=== PATIENT | female | born 1960 | race Caucasian/White ===

== ENCOUNTER → 2016-12-26 | Outpatient (CLI) | payer MEDICARE, OTHER ==
[~2016-12-26] MED LIST: ACETAMINOPHEN W1 TA6 PO; ALEVE220 MG PO; AMOXICILLIN875 MG PO; ASPIRIN 32325 MG/TA1 PO; ASPIRIN 32325 MG/TAB PO; ATIVAN 0.50.5 MG/TAB PO; ATROVENT INHALE14 GM IH; CALCIUM CARBONATE PO; CARDIZEM CD 18180 MG PO; CARTIA XT240 MG PO; CLONAZEPAM0.5 MG PO; CLONAZEPAM1 MG PO; CLONIDINE0.1 MG PO; CORBAN MAGNESI400 MG PO; DICLOFENAC SOD75 MG PO; DILT-XR240 MG PO; DILTIAZEM ER240 MG PO; FAMOTIDINE 1010 MG PO; FAMOTIDINE20 MG PO; FLECAINIDE PO; FLECAINIDE150 MG PO; FLONASE0.05 MG/AC NAS; FLUTICASON0.05 MG/Ac NS; FOLIC ACID0.8 MG PO; GOOD NEIGHBOR P81 MG PO; GOOD NEIGHBOR325 MG PO; GOOD SENSE ASPI81 M1 PO; KLONOPIN 1MG1 M1 PO; KLONOPIN 1MG1 MG; LISINOPRIL10 MG PO; LISINOPRIL5 MG PO; LORTAB 5/500 501 TAB PO; MAG-OX 400400 MG/TAB PO; MAGNESIUM OXID400 MG PO; MELOXICAM15 MG PO; MUCINEX 60600 MG/TA1 PO; MULTAQ400 M1 PO; MULTI-VITAMINS1 TA1 PO; MULTIVITAMIN FO1 CAP PO; MYLICON PO; NEIGHBOR PO; NORCO 325 MG-51 TA1 PO; NORCO 325 MG-51 TAB PO; NORCO 325 MG-7.1 TAB PO; ONDANSETRON8 M1 PO; ONDANSETRON8 M2 PO; PAXIL10 MG PO; PEPCID 20MG TAB20 MG PO; POTASSIUM CH2 MEQ/ML PO; PRADAXA150 MG PO; PRILOSEC 20MG20 MG PO; PRINIVIL5 MG PO; SERTRALINE50 MG PO; TAMBOCOR150 MG PO; ULTRAM 50MG TAB50 MG PO; VALIUM10 MG PO; VOLTAREN 75 DR75 MG PO; ZESTRIL 10MG10 MG PO; ZESTRIL 5MG5 MG PO; ZOLOFT 100MG100 MG PO
== END ==
LOC: RAD 15:25
DX: S09.90XA Unspecified injury of head, initial encounter (principal); X58.XXXA Exposure to other specified factors, initial encounter; Y93.9 Activity, unspecified

== ENCOUNTER 2017-01-05 20:21 | Emergency (ER) | payer MEDICARE, OTHER ==
[~2017-01-05 20:21] MED LIST changes: -DILT-XR240 MG PO; -FAMOTIDINE 1010 MG PO; -KLONOPIN 1MG1 MG; -LISINOPRIL10 MG PO; -MAGNESIUM OXID400 MG PO; -MELOXICAM15 MG PO
[2017-01-06 09:57] VITALS: BP 168/90
== END 2017-01-06 10:04 | disposition home or self-care (01) ==
LOC: ED 20:21
DX: R07.9 Chest pain, unspecified (principal); M94.0 Chondrocostal junction syndrome [Tietze]; F10.229 Alcohol dependence with intoxication, unspecified; R51 Headache; F17.210 Nicotine dependence, cigarettes, uncomplicated; Y90.9 Presence of alcohol in blood, level not specified
CPT/HCPCS: J1885; J3411; J3475; J7030

== ENCOUNTER 2017-03-28 14:49 | Emergency (ER) | payer MEDICARE, OTHER ==
[~2017-03-28] VITALS: Ht 167.6 cm; Wt 75.0 kg
[2017-03-28] MEDS ORDERED: LISINOPRIL10 MG PO (15:04)
[2017-03-28] MEDS ORDERED: KLONOPIN 1MG1 MG (15:04)
[2017-03-28] MEDS ORDERED: MAGNESIUM OXID400 MG PO (15:04)
[2017-03-28] MEDS ORDERED: FAMOTIDINE 1010 MG PO (15:05)
[2017-03-28] MEDS ORDERED: DILT-XR240 MG PO (15:05)
[2017-03-28] MEDS ORDERED: MELOXICAM15 MG PO (15:06)
[2017-03-28 19:34] VITALS: BP 134/77
== END 2017-03-28 19:34 | disposition home or self-care (01) ==
LOC: ED 14:49
DX: R07.9 Chest pain, unspecified (principal); M94.0 Chondrocostal junction syndrome [Tietze]; F17.210 Nicotine dependence, cigarettes, uncomplicated; F10.20 Alcohol dependence, uncomplicated; Y90.8 Blood alcohol level of 240 mg/100 ml or more

== ENCOUNTER 2017-10-08 09:20 | Emergency (ER) | payer MEDICARE, MEDICAID ==
[~2017-10-08] VITALS: Ht 170.2 cm; Wt 81.8 kg
[~2017-10-08 09:20] MED LIST changes: +DILT-XR240 MG PO; +FAMOTIDINE 1010 MG PO; +KLONOPIN 1MG1 MG; +LISINOPRIL10 MG PO; +MAGNESIUM OXID400 MG PO; +MELOXICAM15 MG PO
[2017-10-08] MEDS ORDERED: ESCITALOPRAM20 MG PO (10:04)
[2017-10-08] MEDS ORDERED: ASPIR LOW81 MG PO (10:05)
[2017-10-08] MEDS ORDERED: DESYREL 100MG100 MG PO (10:06)
[2017-10-08 10:11] LABS: EOS # 0.1 (0.04-0.40); EOS % 0.8 % (1.0-5.0); HEMOGLOBIN 14.8 g/dL (12.5-16.0); LYMPH# 1.6 (1.50-4.00); MEAN CELL VOLUME 89 fl (78-100); MEAN CORPUSCULAR HEMOGLOBIN 30 pg (27-31); MEAN CORPUSCULAR HGB CONC 34 g/dL (33-37); MEAN PLATELET VOLUME 9.8 fl (7.4-10.4); MONO # 0.6 (0.20-0.80); NEU # 3.7 (1.40-6.50); PLATELET COUNT 220 K/mm3 (130-400); RED BLOOD COUNT 4.95 M/mm3 (4.10-5.30); RED CELL DISTRIBUTION WIDTH 15.9 % (11.5-14.5)
[2017-10-08 10:29] LABS: CKMB ISOENZYME 2.6 ng/mL (0.6-3.5)
[2017-10-08 10:30] LABS: ALBUMIN 4.1 g/dL (3.5-5.0); BUN/CREATININE RATIO 26.9 (6.0-26.0); CALCIUM 8.8 mg/dL (8.4-10.2); TOTAL BILIRUBIN 0.9 mg/dL (0.2-1.3); TOTAL PROTEIN 6.5 g/dL (6.3-8.2)
[2017-10-08 10:34] LABS: TROPONIN-I < 0.03 ng/mL (0.00-0.06)
[2017-10-08] MEDS ORDERED: ALBUTEROL2.5 MG/3 M IH (11:51)
[2017-10-08 12:07] VITALS: BP 116/82
== END 2017-10-08 12:06 | disposition home or self-care (01) ==
LOC: ED 09:20
PROVIDERS: Physician Assistant
DX: J06.9 Acute upper respiratory infection, unspecified (principal); M94.0 Chondrocostal junction syndrome [Tietze]; F10.10 Alcohol abuse, uncomplicated; Y90.8 Blood alcohol level of 240 mg/100 ml or more; I48.91 Unspecified atrial fibrillation; F41.9 Anxiety disorder, unspecified; K21.9 Gastro-esophageal reflux disease without esophagitis; Z79.82 Long term (current) use of aspirin; Z88.1 Allergy status to other antibiotic agents; Z88.8 Allergy status to other drugs, medicaments and biological substances

== ENCOUNTER → 2018-02-19 | Outpatient (CLI) | payer MEDICARE, MEDICAID ==
[~2018-02-19] MED LIST changes: +ALBUTEROL2.5 MG/3 M IH; +ASPIR LOW81 MG PO; +DESYREL 100MG100 MG PO; +ESCITALOPRAM20 MG PO
[2018-02-19 20:36] LABS: URINE APPEARANCE CLEAR; URINE BILIRUBIN NEGATIVE (NEGATIVE); URINE BLOOD NEGATIVE (NEGATIVE); URINE COLOR YELLOW; URINE GLUCOSE NEGATIVE (NEGATIVE); URINE KETONE NEGATIVE (NEGATIVE); URINE LEUKOCYTE ESTERASE NEGATIVE (NEGATIVE); URINE NITRATE NEGATIVE (NEGATIVE); URINE PROTEIN(semi-quant) NEGATIVE (NEGATIVE); URINE UROBILINOGEN NORMAL (NORMAL)
[2018-02-19 20:37] LABS: URINE WBC 0-1 /hpf (0-3)
== END ==
LOC: RAD 14:33
PROVIDERS: Family Medicine
DX: M17.12 Unilateral primary osteoarthritis, left knee (principal); I48.0 Paroxysmal atrial fibrillation; E83.42 Hypomagnesemia; I10 Essential (primary) hypertension; F41.9 Anxiety disorder, unspecified; K21.9 Gastro-esophageal reflux disease without esophagitis; F33.1 Major depressive disorder, recurrent, moderate; R39.15 Urgency of urination; R05 Cough

== ENCOUNTER → 2018-02-20 | Outpatient (CLI) | payer MEDICARE, MEDICAID ==
[2018-02-20 10:29] LABS: BUN/CREATININE RATIO 17.5 (6.0-26.0); CALCIUM 9.1 mg/dL (8.4-10.2); POTASSIUM 4.1 mmol/L (3.6-5.0); TOTAL BILIRUBIN 0.3 mg/dL (0.2-1.3); TOTAL PROTEIN 7.1 g/dL (6.3-8.2)
[2018-02-20 10:35] LABS: HEMATOCRIT 41.4 % (37.0-47.0); HEMOGLOBIN 14.4 g/dL (12.5-16.0); MEAN CELL VOLUME 94 fl (78-100); MEAN CORPUSCULAR HEMOGLOBIN 33 pg (27-31); MEAN CORPUSCULAR HGB CONC 35 g/dL (33-37); MEAN PLATELET VOLUME 11.1 fl (7.4-10.4); PLATELET COUNT 191 K/mm3 (130-400); PROTHROMBIN TIME 9.5 SECONDS (9.0-12.0); RED BLOOD COUNT 4.42 M/mm3 (4.10-5.30); RED CELL DISTRIBUTION WIDTH 15.7 % (11.5-14.5); WHITE BLOOD COUNT 5.2 K/mm3 (4.8-10.8)
[2018-02-20 12:29] LABS: PH-URINE 6.5 (5.0 - 8.0); URINE APPEARANCE CLEAR; URINE BILIRUBIN NEGATIVE (NEGATIVE); URINE BLOOD NEGATIVE (NEGATIVE); URINE COLOR YELLOW; URINE GLUCOSE NEGATIVE (NEGATIVE); URINE KETONE 1+ (NEGATIVE); URINE LEUKOCYTE ESTERASE TRACE (NEGATIVE); URINE NITRATE NEGATIVE (NEGATIVE); URINE PROTEIN(semi-quant) TRACE mg/dL (NEGATIVE); URINE UROBILINOGEN NORMAL (NORMAL)
[2018-02-20 12:30] LABS: URINE MUCUS PRESENT (NOT PRESENT)
== END ==
LOC: LAB 09:43
PROVIDERS: Family Medicine
DX: I10 Essential (primary) hypertension (principal); I48.0 Paroxysmal atrial fibrillation; M17.12 Unilateral primary osteoarthritis, left knee; E83.42 Hypomagnesemia; F41.9 Anxiety disorder, unspecified; K21.9 Gastro-esophageal reflux disease without esophagitis; R39.15 Urgency of urination; F32.9 Major depressive disorder, single episode, unspecified

== ENCOUNTER → 2018-02-24 | Outpatient (CLI) | payer MEDICARE, MEDICAID | LOC: PT 13:18 | DX: M17.12 Unilateral primary osteoarthritis, left knee (principal) ==

== ENCOUNTER → 2018-03-17 | Outpatient (CLI) | payer MEDICARE, MEDICAID | LOC: LAB 15:07 | DX: R25.1 Tremor, unspecified (principal); Z72.89 Other problems related to lifestyle; F41.1 Generalized anxiety disorder; M17.12 Unilateral primary osteoarthritis, left knee; Z88.1 Allergy status to other antibiotic agents ==

== ENCOUNTER → 2018-04-16 | Outpatient (CLI) | payer MEDICARE, MEDICAID ==
[~2018-04-16] VITALS: Ht 170.2 cm; Wt 81.8 kg
[2018-04-16 18:06] VITALS: BP 157/99
[2018-04-16 18:43] LABS: URINE APPEARANCE CLEAR; URINE COLOR YELLOW
[2018-04-16 18:44] LABS: PH-URINE 6.5 (5.0 - 8.0); URINE BILIRUBIN NEGATIVE (NEGATIVE); URINE BLOOD NEGATIVE (NEGATIVE); URINE GLUCOSE NEGATIVE (NEGATIVE); URINE KETONE NEGATIVE (NEGATIVE); URINE LEUKOCYTE ESTERASE NEGATIVE (NEGATIVE); URINE NITRATE NEGATIVE (NEGATIVE); URINE PROTEIN(semi-quant) NEGATIVE (NEGATIVE); URINE UROBILINOGEN NORMAL (NORMAL)
== END ==
LOC: AMSURD 17:10 → LAB 17:10
PROVIDERS: Family Medicine
DX: R39.15 Urgency of urination (principal); E83.42 Hypomagnesemia

== ENCOUNTER → 2018-05-07 | Outpatient (CLI) | payer MEDICARE ==
[2018-04-16 18:06] VITALS: BP 157/99
== END ==
LOC: MAMMO 15:15
DX: Z12.31 Encounter for screening mammogram for malignant neoplasm of breast (principal)

== ENCOUNTER → 2018-06-05 | Outpatient (CLI) | payer MEDICARE ==
[2018-04-16 18:06] VITALS: BP 157/99
[2018-06-05 16:12] LABS: ALCOHOL IN-HOUSE < 10 mg/dL
== END ==
LOC: LAB 15:03
PROVIDERS: Family Medicine
DX: F41.1 Generalized anxiety disorder (principal); M17.12 Unilateral primary osteoarthritis, left knee; Z72.89 Other problems related to lifestyle; E83.42 Hypomagnesemia; R39.15 Urgency of urination

== ENCOUNTER → 2018-06-27 | Outpatient (CLI) | payer MEDICARE ==
[2018-04-16 18:06] VITALS: BP 157/99
[2018-06-27 09:26] LABS: HEMATOCRIT 45.5 % (37.0-47.0); HEMOGLOBIN 15.8 g/dL (12.5-16.0); MEAN CELL VOLUME 92 fl (78-100); MEAN CORPUSCULAR HEMOGLOBIN 32 pg (27-31); MEAN CORPUSCULAR HGB CONC 35 g/dL (33-37); MEAN PLATELET VOLUME 10.1 fl (7.4-10.4); PLATELET COUNT 340 K/mm3 (130-400); RED BLOOD COUNT 4.94 M/mm3 (4.10-5.30); RED CELL DISTRIBUTION WIDTH 14.3 % (11.5-14.5); WHITE BLOOD COUNT 7.5 K/mm3 (4.8-10.8)
[2018-06-27 09:39] LABS: ALBUMIN 4.1 g/dL (3.5-5.0); ALT/SGPT 40 U/L (9-52); AST-SGOT 24 U/L (14-36); BUN/CREATININE RATIO 20.2 (6.0-26.0); CALCIUM 9.2 mg/dL (8.4-10.2); CARBON DIOXIDE 28 mmol/L (22-30); GLUCOSE 95 mg/dL (65-105); POTASSIUM 4.3 mmol/L (3.6-5.0); SODIUM 139 mmol/L (137-145); TOTAL BILIRUBIN 0.6 mg/dL (0.2-1.3); TOTAL PROTEIN 6.8 g/dL (6.3-8.2)
[2018-06-27 09:46] LABS: ALCOHOL IN-HOUSE < 10 mg/dL
[2018-06-27 10:00] LABS: LYMPHOCYTE 41 % (20-51); MONOCYTE 9 % (3-10); NEUTROPHILS 43 % (42-75); PROTHROMBIN TIME 9.3 SECONDS (9.0-12.0)
[2018-06-27 10:22] LABS: URINE COLOR YELLOW
[2018-06-27 10:23] LABS: URINE APPEARANCE HAZY
[2018-06-27 10:24] LABS: URINE BILIRUBIN NEGATIVE (NEGATIVE); URINE BLOOD NEGATIVE (NEGATIVE); URINE GLUCOSE NEGATIVE (NEGATIVE); URINE KETONE NEGATIVE (NEGATIVE); URINE LEUKOCYTE ESTERASE NEGATIVE (NEGATIVE); URINE NITRATE NEGATIVE (NEGATIVE); URINE PROTEIN(semi-quant) TRACE mg/dL (NEGATIVE); URINE UROBILINOGEN NORMAL (NORMAL); URINE WBC 0-1 /hpf (0-3)
== END ==
LOC: LAB 09:08
PROVIDERS: Family Medicine
DX: Z01.812 Encounter for preprocedural laboratory examination (principal); M17.12 Unilateral primary osteoarthritis, left knee; K21.9 Gastro-esophageal reflux disease without esophagitis; I48.0 Paroxysmal atrial fibrillation; I10 Essential (primary) hypertension; E83.42 Hypomagnesemia; F41.1 Generalized anxiety disorder; F32.9 Major depressive disorder, single episode, unspecified; Z86.79 Personal history of other diseases of the circulatory system; Z87.828 Personal history of other (healed) physical injury and trauma

== ENCOUNTER → 2018-07-18 | Outpatient (CLI) | payer MEDICARE, MEDICAID ==
[2018-04-16 18:06] VITALS: BP 157/99
== END | disposition home or self-care (01) ==
LOC: PT 08:30
DX: Z01.818 Encounter for other preprocedural examination (principal); M17.12 Unilateral primary osteoarthritis, left knee

== ENCOUNTER 2018-07-29 10:59 | Emergency (ER) | payer MEDICARE, MEDICAID ==
[~2018-07-29] VITALS: Wt 83.9 kg
[~2018-07-29 10:59] MED LIST changes: -ASPIR LOW81 MG PO; +ASPIR-TRIN325 M1 PO; -LISINOPRIL10 MG PO; +LISINOPRIL40 MG PO
[2018-07-29] MEDS ORDERED: EPIPEN 2-PAK1 MG/ML IM (11:45)
[2018-07-29] MEDS ORDERED: GOOD NEIGHBOR P20 MG PO (11:53)
[2018-07-29] MEDS ORDERED: KLONOPIN 1MG1 MG PO (11:53)
[2018-07-29] MEDS ORDERED: MAGNESIUM OXIDE PO (11:54)
[2018-07-29] MEDS ORDERED: CYCLOBENZ5 MG PO (11:55)
[2018-07-29] MEDS ORDERED: OXYCODONE PO (11:55)
[2018-07-29] MEDS ORDERED: FLECAINIDE ACE150 MG PO (11:56)
[2018-07-29] MEDS ORDERED: DILT-XR240 MG PO (11:57)
[2018-07-29] MEDS ORDERED: BENADRYL PO (11:57)
[2018-07-29] MEDS ORDERED: PHARMASSURE FO0.4 MG PO (11:58)
[2018-07-29] MEDS ORDERED: VITAMIN C PURE500 M1 PO (11:59)
[2018-07-29] MEDS ORDERED: MULTIPLE VITAMI1 TA1 PO (11:59)
[2018-07-29] MEDS ORDERED: NORCO 325 MG-7.1 TA1 PO (11:59)
[2018-07-29] MEDS ORDERED: FERROUS SULFAT325 MG PO (12:00)
[2018-07-29] MEDS ORDERED: PREDNISONE20 MG PO (16:02)
[2018-07-29 16:22] VITALS: BP 143/85
== END 2018-07-29 16:23 | disposition home or self-care (01) ==
LOC: ED 10:59
DX: T78.3XXA Angioneurotic edema, initial encounter (principal); I48.91 Unspecified atrial fibrillation; I10 Essential (primary) hypertension; K21.9 Gastro-esophageal reflux disease without esophagitis; G47.33 Obstructive sleep apnea (adult) (pediatric); Z96.652 Presence of left artificial knee joint; Z79.82 Long term (current) use of aspirin; Z79.899 Other long term (current) drug therapy; F17.200 Nicotine dependence, unspecified, uncomplicated
CPT/HCPCS: J0171; J1200; J2405; J2930; J3490; J7030

== ENCOUNTER → 2018-07-31 | Outpatient (CLI) | payer MEDICARE, MEDICAID ==
[2018-07-29 16:22] VITALS: BP 143/85
[~2018-07-31] MED LIST changes: +BENADRYL PO; +CYCLOBENZ5 MG PO; +EPIPEN 2-PAK1 MG/ML IM; +FERROUS SULFAT325 MG PO; +FLECAINIDE ACE150 MG PO; +GOOD NEIGHBOR P20 MG PO; +KLONOPIN 1MG1 MG PO; +MAGNESIUM OXIDE PO; +MULTIPLE VITAMI1 TA1 PO; +NORCO 325 MG-7.1 TA1 PO; +OXYCODONE PO; +PHARMASSURE FO0.4 MG PO; +PREDNISONE20 MG PO; +VITAMIN C PURE500 M1 PO
== END ==
LOC: RAD 14:14
DX: K59.00 Constipation, unspecified (principal); Z98.890 Other specified postprocedural states

== ENCOUNTER 2018-08-01 13:00 | Outpatient (RCR) | payer MEDICARE, MEDICAID ==
[2018-04-16 18:06] VITALS: BP 157/99
== END 2018-08-01 13:30 | disposition home or self-care (01) ==
LOC: PT 13:00
DX: Z47.1 Aftercare following joint replacement surgery (principal); Z96.652 Presence of left artificial knee joint
CPT/HCPCS: G8978-GP; G8979-GP

== ENCOUNTER → 2018-08-06 | Outpatient (CLI) | payer MEDICARE, MEDICAID ==
[2018-07-29 16:22] VITALS: BP 143/85
[2018-08-06 18:26] LABS: HEMATOCRIT 38.3 % (37.0-47.0); MEAN PLATELET VOLUME 10.2 fl (7.4-10.4); RED BLOOD COUNT 4.02 M/mm3 (4.10-5.30); RED CELL DISTRIBUTION WIDTH 15.2 % (11.5-14.5); WHITE BLOOD COUNT 8.4 K/mm3 (4.8-10.8)
== END ==
LOC: LAB 16:14
PROVIDERS: Family Medicine
DX: M17.12 Unilateral primary osteoarthritis, left knee (principal); Z96.652 Presence of left artificial knee joint

== ENCOUNTER 2018-09-11 18:51 | Observation (INO) | payer MEDICARE, MEDICAID ==
[~2018-09-11] VITALS: Ht 170.2 cm; Wt 77.1 kg
[2018-09-11] MEDS ORDERED: METOPROLOL SUCC50 M1 PO (19:32)
[2018-09-11 19:53] LABS: BASO # 0.1 (0.02-0.10); EOS # 0.1 (0.04-0.40); EOS % 2.1 % (1.0-5.0); HEMATOCRIT 42.6 % (37.0-47.0); HEMOGLOBIN 14.8 g/dL (12.5-16.0); LYMPH# 2.5 (1.50-4.00); MEAN CELL VOLUME 96 fl (78-100); MEAN CORPUSCULAR HEMOGLOBIN 33 pg (27-31); MEAN CORPUSCULAR HGB CONC 35 g/dL (33-37); MEAN PLATELET VOLUME 10.3 fl (7.4-10.4); MONO # 0.7 (0.20-0.80); PLATELET COUNT 297 K/mm3 (130-400); RED BLOOD COUNT 4.46 M/mm3 (4.10-5.30); WHITE BLOOD COUNT 6.3 K/mm3 (4.8-10.8)
[2018-09-11 20:06] LABS: ALBUMIN 3.6 g/dL (3.5-5.0); CALCIUM 8.3 mg/dL (8.4-10.2); POTASSIUM 3.3 mmol/L (3.6-5.0); TOTAL BILIRUBIN 0.3 mg/dL (0.2-1.3); TOTAL PROTEIN 6.1 g/dL (6.3-8.2)
[2018-09-11 20:59] VITALS: BP 131/78
[2018-09-11 21:39] VITALS: BP 131/78
[2018-09-11 23:21] VITALS: BP 119/77
[2018-09-12] VITALS (9 sets, daily range): BP systolic 122–175; BP diastolic 76–106
[2018-09-12 00:51] LABS: ACETAMINOPHEN < 4 ug/mL (10-30)
[2018-09-12 01:33] LABS: URINE APPEARANCE CLEAR; URINE COLOR YELLOW; URINE PROTEIN(semi-quant) TRACE mg/dL (NEGATIVE)
[2018-09-12 01:34] LABS: URINE BILIRUBIN NEGATIVE (NEGATIVE); URINE BLOOD NEGATIVE (NEGATIVE); URINE GLUCOSE NEGATIVE (NEGATIVE); URINE KETONE NEGATIVE (NEGATIVE); URINE LEUKOCYTE ESTERASE NEGATIVE (NEGATIVE); URINE NITRATE NEGATIVE (NEGATIVE); URINE UROBILINOGEN NORMAL (NORMAL); URINE WBC 0-1 /hpf (0-3)
[2018-09-12 07:12] LABS: CALCIUM 7.7 mg/dL (8.4-10.2); POTASSIUM 3.7 mmol/L (3.6-5.0)
[2018-09-12 13:14] LABS: CALCIUM 8.4 mg/dL (8.4-10.2); POTASSIUM 4.1 mmol/L (3.6-5.0)
[2018-09-12] MEDS ORDERED: TRAMADOL 50 MG TAB PO (17:33)
[2018-09-12] MEDS ORDERED: ZITHROMAX TRI-500 MG PO (17:35)
[2018-09-12] MEDS ORDERED: PROAIR HFA0.09 MG/AC IH (17:35)
== END 2018-09-12 18:15 | disposition home or self-care (01) ==
LOC: ED 18:51 → MED/SURG 20:07
PROVIDERS: Family Medicine; ADMIT Nurse Practitioner Family
DX: F10.120 Alcohol abuse with intoxication, uncomplicated (principal); Y90.8 Blood alcohol level of 240 mg/100 ml or more; E87.6 Hypokalemia; J40 Bronchitis, not specified as acute or chronic; F17.210 Nicotine dependence, cigarettes, uncomplicated; I48.0 Paroxysmal atrial fibrillation; Z79.01 Long term (current) use of anticoagulants; Z96.652 Presence of left artificial knee joint; Z04.71 Encounter for examination and observation following alleged adult physical abuse; Z79.899 Other long term (current) drug therapy; Z79.82 Long term (current) use of aspirin; R11.2 Nausea with vomiting, unspecified; I10 Essential (primary) hypertension; K21.9 Gastro-esophageal reflux disease without esophagitis; G47.33 Obstructive sleep apnea (adult) (pediatric); T50.902A Poisoning by unspecified drugs, medicaments and biological substances, intentional self-harm, initial encounter; F32.9 Major depressive disorder, single episode, unspecified
CPT/HCPCS: G0378; J2405; J3411; J3490; J7030

== ENCOUNTER → 2019-04-28 | Outpatient (CLI) | payer MEDICARE, OTHER ==
[2018-09-12 17:11] VITALS: BP 158/85
[~2019-04-28] MED LIST changes: +METOPROLOL SUCC50 M1 PO; +PROAIR HFA0.09 MG/AC IH; +TRAMADOL 50 MG TAB PO; +ZITHROMAX TRI-500 MG PO
== END ==
LOC: MAMMO 11:29
DX: Z12.31 Encounter for screening mammogram for malignant neoplasm of breast (principal)

== ENCOUNTER → 2020-05-27 | Outpatient (CLI) | payer MEDICARE ==
[2018-09-12 17:11] VITALS: BP 158/85
== END ==
LOC: LAB 09:46
DX: Z01.812 Encounter for preprocedural laboratory examination (principal); Z20.828 Contact with and (suspected) exposure to other viral communicable diseases

== ENCOUNTER 2020-10-24 00:08 | Emergency (ER) | payer MEDICARE ==
[2020-10-24] MEDS ORDERED: OXAYDO5 MG PO (00:24)
[2020-10-24 02:04] LABS: POTASSIUM 3.6 mmol/L (3.5-5.1)
[2020-10-24 02:05] LABS: CALCIUM 9.3 mg/dL (8.3-10.5)
[2020-10-24 02:09] LABS: HEMATOCRIT 40.7 % (37.0-47.0); HEMOGLOBIN 13.7 g/dL (12.5-16.0); MEAN CELL VOLUME 98 fl (78-100); MEAN CORPUSCULAR HEMOGLOBIN 33 pg (27-31); MEAN CORPUSCULAR HGB CONC 34 g/dL (33-37); MEAN PLATELET VOLUME 10.4 fl (7.4-10.4); RED BLOOD COUNT 4.16 M/mm3 (4.10-5.30); RED CELL DISTRIBUTION WIDTH 14.1 % (11.5-14.5); WHITE BLOOD COUNT 16.5 K/mm3 (4.8-10.8)
[2020-10-24 02:11] LABS: PLATELET COUNT 526 K/mm3 (130-400)
[2020-10-24 02:19] LABS: LYMPHOCYTE 6 % (20-51); MONOCYTE 4 % (3-10); NEUTROPHILS 90 % (42-75)
[2020-10-24] MEDS ORDERED: ROXICODONE 55 MG/TAB PO (05:54)
[2020-10-24] MEDS ORDERED: PANTOPRAZOLE SO40 MG PO (07:33)
[2020-10-24] MEDS ORDERED: METOCLOPRAMIDE10 M5 PO (07:33)
[2020-10-24] MEDS ORDERED: ZOFRAN ODT4 MG PO (07:33)
[2020-10-24 08:09] VITALS: BP 144/84
== END 2020-10-24 08:04 | disposition home or self-care (01) ==
LOC: ED 00:08
PROVIDERS: Family Medicine
DX: M54.2 Cervicalgia (principal); K21.9 Gastro-esophageal reflux disease without esophagitis; I25.10 Atherosclerotic heart disease of native coronary artery without angina pectoris; F17.210 Nicotine dependence, cigarettes, uncomplicated; Z20.828 Contact with and (suspected) exposure to other viral communicable diseases; Z95.0 Presence of cardiac pacemaker; Z79.82 Long term (current) use of aspirin
CPT/HCPCS: C9113; J0595; J1885; J2060; J2360; J2405; J2765; J3490; J7030

== ENCOUNTER 2020-11-23 10:08 | Emergency (ER) | payer MEDICARE ==
[~2020-11-23 10:08] MED LIST changes: +METOCLOPRAMIDE10 M5 PO; +OXAYDO5 MG PO; +PANTOPRAZOLE SO40 MG PO; +ROXICODONE 55 MG/TAB PO; +ZOFRAN ODT4 MG PO
[2020-11-23 11:02] LABS: EOS % 0.2 % (1.0-5.0); HEMATOCRIT 38.6 % (37.0-47.0); HEMOGLOBIN 12.3 g/dL (12.5-16.0); LYMPH# 0.9 (1.50-4.00); MEAN CELL VOLUME 101 fl (78-100); MEAN CORPUSCULAR HEMOGLOBIN 32 pg (27-31); MEAN CORPUSCULAR HGB CONC 32 g/dL (33-37); MEAN PLATELET VOLUME 10.1 fl (7.4-10.4); MONO # 0.8 (0.20-0.80); PLATELET COUNT 163 K/mm3 (130-400); RED BLOOD COUNT 3.83 M/mm3 (4.10-5.30); RED CELL DISTRIBUTION WIDTH 14.5 % (11.5-14.5); WHITE BLOOD COUNT 6.7 K/mm3 (4.8-10.8)
[2020-11-23 11:11] LABS: ALBUMIN 4.6 g/dL (3.5-5.0); POTASSIUM 4.2 mmol/L (3.5-5.1); SODIUM 142 mmol/L (136-145)
[2020-11-23 11:13] LABS: CALCIUM 9.1 mg/dL (8.3-10.5)
[2020-11-23 11:14] LABS: GLUCOSE 66 mg/dL (65-105); TOTAL PROTEIN 7.6 g/dL (6.4-8.3)
[2020-11-23 11:16] LABS: TOTAL BILIRUBIN 1.9 mg/dL (0.2-1.2)
[2020-11-23 11:19] LABS: AST-SGOT 59 U/L (5-34)
[2020-11-23 11:20] LABS: ALT/SGPT 27 U/L (0-55)
[2020-11-23 11:21] LABS: CARBON DIOXIDE 13 mmol/L (22-29)
[2020-11-23 12:01] LABS: TROPONIN-I < 0.03 ng/mL (<0.030)
[2020-11-23 12:02] LABS: D-DIMER 3.8 mg/L FEU (0.15-0.50)
[2020-11-23 12:52] LABS: URINE APPEARANCE CLEAR; URINE BILIRUBIN NEGATIVE (NEGATIVE); URINE BLOOD TRACE (NEGATIVE); URINE COLOR YELLOW; URINE GLUCOSE NEGATIVE (NEGATIVE); URINE KETONE 2+ (NEGATIVE); URINE LEUKOCYTE ESTERASE NEGATIVE (NEGATIVE); URINE MUCUS PRESENT (NOT PRESENT); URINE NITRATE NEGATIVE (NEGATIVE); URINE PROTEIN(semi-quant) 2+ mg/dL (NEGATIVE); URINE UROBILINOGEN NORMAL (NORMAL)
[2020-11-23 14:22] LABS: POTASSIUM 4.7 mmol/L (3.5-5.1)
[2020-11-23 14:23] LABS: CALCIUM 8.4 mg/dL (8.3-10.5)
[2020-11-23] MEDS ORDERED: ZOFRAN ODT4 MG PO (14:43)
[2020-11-23 14:47] VITALS: BP 173/89
== END 2020-11-23 15:50 | disposition home or self-care (01) ==
LOC: ED 10:08
PROVIDERS: Physician Assistant
DX: K80.20 Calculus of gallbladder without cholecystitis without obstruction (principal); I25.10 Atherosclerotic heart disease of native coronary artery without angina pectoris; I10 Essential (primary) hypertension; F17.210 Nicotine dependence, cigarettes, uncomplicated; Z79.82 Long term (current) use of aspirin
CPT/HCPCS: J2405; J2550; J3010; J7030; Q9967

== ENCOUNTER → 2020-12-29 | Outpatient (CLI) | payer MEDICARE | LOC: MAMMO 12:15 | DX: N63.22 Unspecified lump in the left breast, upper inner quadrant (principal); N63.21 Unspecified lump in the left breast, upper outer quadrant; R92.1 Mammographic calcification found on diagnostic imaging of breast ==

== ENCOUNTER 2021-12-17 03:37 | Emergency (ER) | payer OTHER ==
[~2021-12-17] VITALS: Ht 167.6 cm; Wt 77.1 kg
[2021-12-17] MEDS ORDERED: TOPCARE WOMAN'S5 MG PO (04:18)
[2021-12-17] MEDS ORDERED: POTASSIUM CHLO20 ME3 PO (04:19)
[2021-12-17] MEDS ORDERED: LOSARTAN POTAS100 MG PO (04:19)
[2021-12-17] MEDS ORDERED: CAL MAG ZINC +1 EAC1 PO (04:21)
[2021-12-17] MEDS ORDERED: CLARITIN10 M1 PO (04:22)
[2021-12-17] MEDS ORDERED: FLECAINIDE ACE150 MG PO (04:23)
[2021-12-17] MEDS ORDERED: DITROPAN 5MG TAB5 MG PO (04:25)
[2021-12-17] MEDS ORDERED: DILT-XR240 MG PO (04:25)
[2021-12-17] MEDS ORDERED: COLACE100 M1 PO (04:26)
[2021-12-17] MEDS ORDERED: ADULT ASPIRIN R81 MG PO (04:27)
[2021-12-17 05:27] LABS: BASO # 0.06 K/mm3 (0.02-0.10); EOS # 0.03 K/mm3 (0.04-0.40); EOS % 0.4 % (1.0-5.0); HEMATOCRIT 36.7 % (37.0-47.0); HEMOGLOBIN 13.2 g/dL (12.5-16.0); LYMPH# 0.97 K/mm3 (1.50-4.00); MEAN CELL VOLUME 94 fl (78-100); MEAN CORPUSCULAR HEMOGLOBIN 34 pg (27-31); MEAN CORPUSCULAR HGB CONC 36 g/dL (33-37); MEAN PLATELET VOLUME 9.5 fl (7.4-10.4); MONO # 0.66 K/mm3 (0.20-0.80); NEU # 5.96 K/mm3 (1.40-6.50); PLATELET COUNT 202 K/mm3 (130-400); RED BLOOD COUNT 3.89 M/mm3 (4.10-5.30); RED CELL DISTRIBUTION WIDTH 13.6 % (11.5-14.5); WHITE BLOOD COUNT 7.7 K/mm3 (4.8-10.8)
[2021-12-17 05:43] LABS: POTASSIUM 4.5 mmol/L (3.5-5.1)
[2021-12-17 05:44] LABS: CALCIUM 8.6 mg/dL (8.3-10.5)
[2021-12-17 05:47] LABS: TOTAL BILIRUBIN 0.8 mg/dL (0.2-1.2)
[2021-12-17 05:54] LABS: URINE APPEARANCE CLOUDY; URINE COLOR YELLOW
[2021-12-17 05:55] LABS: URINE BILIRUBIN NEGATIVE (NEGATIVE); URINE BLOOD 250 ery/uL (NEGATIVE); URINE GLUCOSE NEGATIVE (NEGATIVE); URINE KETONE NEGATIVE (NEGATIVE); URINE LEUKOCYTE ESTERASE 2+ (NEGATIVE); URINE NITRATE NEGATIVE (NEGATIVE); URINE PROTEIN(semi-quant) 1+ (NEGATIVE); URINE UROBILINOGEN NORMAL (NORMAL); URINE WBC >50 /hpf (0-3)
[2021-12-17] MEDS ORDERED: MACROBID 100 M100 MG PO (09:48)
[2021-12-17] MEDS ORDERED: PHENERGAN 25 TA25 MG PO (09:48)
[2021-12-17 13:25] VITALS: BP 123/90
== END 2021-12-17 13:25 | disposition home or self-care (01) ==
LOC: ED 03:37
PROVIDERS: Family Medicine
DX: R51.9 Headache, unspecified (principal); I10 Essential (primary) hypertension; R11.2 Nausea with vomiting, unspecified; R82.81 Pyuria; E86.9 Volume depletion, unspecified; I48.91 Unspecified atrial fibrillation; Z79.899 Other long term (current) drug therapy; Z85.3 Personal history of malignant neoplasm of breast
CPT/HCPCS: J0360; J0595; J2060; J2405; J2550; J2765; J3480; J3490

== ENCOUNTER → 2022-03-28 | Day surgery (SDC) | payer MEDICARE, MEDICAID ==
[~2022-03-28] MED LIST changes: +ADULT ASPIRIN R81 MG PO; +CAL MAG ZINC +1 EAC1 PO; +CLARITIN10 M1 PO; +COLACE100 M1 PO; +DITROPAN 5MG TAB5 MG PO; +LOSARTAN POTAS100 MG PO; +MACROBID 100 M100 MG PO; +PHENERGAN 25 TA25 MG PO; +POTASSIUM CHLO20 ME3 PO; +TOPCARE WOMAN'S5 MG PO
== END | disposition home or self-care (01) ==
LOC: MSO 08:41
DX: H26.9 Unspecified cataract (principal)
CPT/HCPCS: 00142; J0171; J2250; J3010; V2632